=== PATIENT | male | born 1990 | race Caucasian/White ===

== ENCOUNTER 2020-04-06 02:15 | Emergency (ER) | payer SELFPAY ==
[~2020-04-06] VITALS: Ht 172.7 cm; Wt 113.4 kg
--- NOTE | 2020-04-06 02:54 | ED General ---
General Chief Complaint: General Problems/Pain Stated Complaint: CYST ON TAILBONE Nursing Triage Note: PT AMBULATE TO ROOM 07 WITH C/O CYST ON HIS TAILBONE. PT REPORTS THAT CYST WAS LANCED IN SAME LOCATION 6 MONTHS AGO AND THE CYST HAS RETURNED. Nursing Sepsis Screen: No Definite Risk Source of Information: Patient Exam Limitations: No Limitations History of Present Illness Date Seen by Provider: Apr 06, 2020 Time Seen by Provider: 02:49 Initial Comments Patient is a 29-year-old male who presents to the emergency room with a complaint of a "cyst on his tailbone". Patient states he had this about 2 years ago and had it lanced. It occurred 9 months ago as well. Patient states that he has been working on a job site and noticed over the past couple of days that the cyst has recurred. Patient states it hurts to walk and sit. He states he thinks it may be draining just a little bit now. Patient states that nothing ma kes it any better. Movement as stated makes it worse. Patient states he has been doing warm soaks without any relief of symptoms. No fevers, chills, cough or congestion. No sick contacts. No other complaints of GI or illnesses. All other review of systems reviewed and negative except as stated. Timing/Duration: 2-3 Days Severity: Moderate Modifying Factors: worse with Movement Associated Systoms: Denies Symptoms Allergies and Home Medications Allergies Coded Allergies: No Known Allergies (Verified Allergy, Unknown, 04/06/20) Patient Home Medication List Home Medication List Reviewed: Yes Review of Systems Review of Systems Constitutional: no symptoms reported Respiratory: no symptoms reported Cardiovascular: no symptoms reported Gastrointestinal: no symptoms reported Genitourinary: no symptoms reported Musculoskeletal: no symptoms reported Skin: lesions (Tailbone) All Other Systems Reviewed Negative Unless Noted: Yes Past Iipnwkq-Mzjzod-Qbqdtg Hx Patient Social History Alcohol Use: Occasionally Uses Recreational Drug Use: No Smoking Status: Current Everyday Smoker Type Used: Cigarettes 2nd Hand Smoke Exposure: Yes Recent Foreign Travel: No Contact w/Someone Who Travel: No Recent Infectious Disease Expo: No Recent Hopitalizations: No Physical Abuse: No Sexual Abuse: No Mistreated: No Fear: No Seasonal Allergies Seasonal Allergies: No Past Medical History Surgeries: No Respiratory: No Cardiac: No Neurological: No Genitourinary: No Gastrointestinal: No Musculoskeletal: No Endocrine: No HEENT: No Cancer: No Psychosocial: No Integumentary: No Blood Disorders: No Physical Exam Vital Signs Vital Signs - First Documented 04/06/20 02:38 Temp 36.7 Pulse 91 Resp 17 B/P (MAP) 156/98 (117) O2 Delivery Room Air Capillary Refill : Less Than 3 Seconds Height, Weight, BMI Height: '" Weight: lbs. oz. kg; 38.00 BMI Method: General Appearance: No Apparent Distress, WD/WN Eyes: Bilateral Eye Normal Inspection, Bilateral Eye PERRL, Bilateral Eye EOMI Respiratory: Lungs Clear, Normal Breath Sounds, No Accessory Muscle Use, No Respiratory Distress Cardiovascular: Regular Rate, Rhythm Skin: Normal Color, Other (Patient has a large abscess, pilonidal minimal drainage is noted, very tender to palpation significant fluctuance is noted to the left of midline) Procedures/Interventions I&D : Site: right buttock/pilonidal Blade Size: 11 I & D Procedure: betadine prep, Wound Packing Packing/Drain: Idoform 1/2 Progress After patient was positioned on his belly abscess was identified/pilonidal. #11 blade used to incise the abscess to the left of the midline. Large amount of pus from the wound. Irrigated copiously. Wound explored to break up loculations more pus was evacuated from the wound Wound was then packed with half-inch iodoform gauze. Patient tolerated the procedure well and obtained much relief after the incision and drainage of this abscess. Progress/Results/Core Measures Suspected Sepsis Recent Fever Within 48 Hours: No Infection Criteria Present: None New/Unexplained Altered Menta: No Sepsis Screen: No Definite Risk SIRS Temperature: Pulse: 91 Respiratory Rate: 17 Blood Pressure 156 /98 Mean: 117 Results/Orders My Orders Orders - JENNI METZ MD Lidocaine 2% Injection 20 Ml (Xylocaine (04/06/20 03:00) Lidocaine 1% Inj 20 Ml (Xylocaine 1% Inj (04/06/20 02:57) Vital Signs/I&O 04/06/20 02:38 Temp 36.7 Pulse 91 Resp 17 B/P (MAP) 156/98 (117) O2 Delivery Room Air Capillary Refill : Less Than 3 Seconds Blood Pressure Mean: 117 Departure Impression Primary Impression: Pilonidal cyst with abscess Disposition: 01 HOME, SELF-CARE Condition: Stable Departure-Patient Inst. Decision time for Depature: 03:26 Referrals: NO,LOCAL PHYSICIAN (PCP/Family) Primary Care Physician Patient Instructions: Pilonidal Cyst (DC), Abscess Incision and Drainage ED Add. Discharge Instructions: Try and keep the wound clean dry and covered. The abscess packing will need to be removed in 2 days and replaced. You can do warm soaks in the bathtub with the packing in place. Please follow-up with your primary care physician once you get home. You will be need to be referred to a general surgeon for definitive care of the abscess. Take hydrocodone as needed for pain every 4-6 hours. Please keep in mind that hydrocodone can cause you to become sleepy. Do not drive while taking hydrocodone. Do not make legal decisions while taking hydrocodone. Hydrocodone can be habit-forming, only take the medications when it is absolutely necessary and for the shortest amount of time possible. Alternate with ibuprofen. Return to the emergency department if you have any worsening pain especially associated with fever over 101, worsening drainage or any other emergent concerning symptoms. Scripts Hydrocodone/Acetaminophen (Hydrocodone/Acetaminophen 5 MG/325 MG TAB) 1 Each Tablet 1 TAB PO Q4-6HR for Pain MDD 10 TABS for 7 Days, #20 TAB Prov: JENNI METZ MD 04/06/20 JENNI METZ MD Apr 06, 2020 02:54
[2020-04-06] MEDS ORDERED: LIDOCAINE 1% INJ 20 ML 20 ML VIAL ONE (02:57)
[2020-04-06] MEDS ORDERED: LIDOCAINE 2% 20 ML (XYLOCAINE) VIAL INJ ONE (03:00)
[2020-04-06] MEDS ORDERED: HYDR-4226 PO (03:28)
[2020-04-06] MEDS ORDERED: RX-HYDROCODONE/APAP 5/325 MG #4 TAB PK PO PRN (03:30)
[2020-04-06] MEDS ORDERED: LIDOCAINE 1% INJ 20 ML 20 ML VIAL INJ ONE (03:30)
[2020-04-06 03:36] VITALS: BP 133/73
== END 2020-04-06 03:35 | disposition home or self-care (01) ==
LOC: ER 02:20
DX: L05.01 Pilonidal cyst with abscess (principal); F17.210 Nicotine dependence, cigarettes, uncomplicated
CPT/HCPCS: 99283